=== PATIENT | female | born 1975 | race Caucasian/White ===

== ENCOUNTER 2017-05-03 12:34 | Emergency (ER) | payer BC ==
[~2017-05-03] VITALS: Ht 162.6 cm; Wt 81.5 kg
[~2017-05-03 12:34] MED LIST: LEVO75TA5 PO; PRENAT PO
[2017-05-03 12:49] VITALS: Ht 162.6 cm; Wt 81.5 kg
[2017-05-03 14:32] LABS: BASOPHIL # 0.1 10^3/ul (0.0-0.1); BASOPHILS % 0.7 % (0.0-2.0); EOSINOPHILS # 0.1 10^3/ul (0.0-0.5); HEMATOCRIT 44.6 % (37.0-47.0); HEMOGLOBIN 14.4 g/dl (12.0-16.0); LYMPHOCYTES # 2.3 10^3/ul (0.8-2.9); LYMPHOCYTES % 20.2 % (15.0-51.0); MEAN CORPUSCULAR HGB CONC 32.3 g/dl (32.0-37.0); MEAN CORPUSCULAR VOLUME 80.5 fl (82.0-101.0); MONOCYTE # 0.6 10^3/ul (0.3-0.9); MONOCYTES % 5.1 % (0.0-11.0); NEUTROPHILS % 72.6 % (39.0-77.0); PLATELET COUNT 398 10^3/UL (140-415); RED BLOOD COUNT 5.54 10^6/ul (4.20-5.40); RED CELL DISTRIBUTION WIDTH 12.9 % (11.5-14.5); WHITE BLOOD COUNT 11.6 10^3/ul (4.8-10.8)
[2017-05-03 14:42] LABS: ADD UMIC YES; UR ASCORBIC ACID 40 mg/dL (NEGATIVE); UR BACTERIA FEW /HPF (NONE SEEN); UR BILIRUBIN (Dip) NEGATIVE (NEGATIVE); UR BLOOD (Dip) 3+ mg/dL (NEGATIVE); UR CLARITY CLOUDY (CLEAR); UR COLOR YELLOW (YELLOW); UR GLUCOSE (Dip) NEGATIVE (NEGATIVE); UR KETONES (Dip) NEGATIVE (NEGATIVE); UR LEUKOCYTE ESTERASE (Dip) 3+ Leu/ul (NEGATIVE); UR NITRITE (Dip) NEGATIVE (NEGATIVE); UR RBC 89 /HPF (0-5); UR SPECIFIC GRAVITY (Dip) 1.012 (1.003-1.030); UR TOTAL PROTEIN (Dip) 1+ mg/dl (NEGATIVE); UR UROBILINOGEN (Dip) NEGATIVE (NEGATIVE); UR WBC CLUMPS FEW /HPF (NONE SEEN)
--- NOTE | 2017-05-03 14:47 | ERD ---
ER Documentation Chief Complaint Date/Time DATE: 05/03/17 TIME: 14:46 Chief Complaint Complains of painful urination HPI This a 42-year-old female who presents emergency department today complaining of pain with urination for the past week and vaginal bleeding that started today.. States that several months ago she was treated with a urinary tract infection. Patient states that she recently was on her menstrual cycle and try to go to her doctor but her doctor told her not to get her urine tested at that time because of all the blood in her urine from her menstrual cycle. Patient states that she noticed vaginal bleeding today even after her period stopped. States she does have a history of fibroids. States that she has very limited amount of pain. States she called her [facility] office and was told to "come to the ER because her fibroid may have ruptured". Denies any back pain, fevers or chills. ROS All systems reviewed and are negative except as per history of present illness. Medications Home Meds Active Scripts Naproxen* (Naprosyn*) 500 Mg Tablet, 500 MG PO BID Y for PAIN AND/OR INFLAMMATION, #30 TAB Prov:CARRI MARTINEZ PA-C 05/03/17 Cephalexin* (Keflex*) 500 Mg Capsule, 500 MG PO QID for 7 Days, CAP Prov:CARRI MARTINEZ PA-C 05/03/17 Reported Medications Levothyroxine Sodium* (Levothyroxine Sodium*) 75 Mcg Tablet, 75 MCG PO BEFORE BREAKFAST, #30 TAB 09/27/15 Multivit/Min/Fol Ac/Iron/Pren* ( S*) 1 Tab Tab, 1 TAB PO DAILY, TAB 12/13/14 Allergies Allergies: Coded Allergies: No Known Allergy (Unverified , 09/27/15) PMhx/Soc History of Surgery: No Anesthesia Reaction: No Hx Neurological Disorder: No Hx Respiratory Disorders: No Hx Cardiac Disorders: No Hx Psychiatric Problems: No Hx Miscellaneous Medical Probl: No Hx Alcohol Use: No Hx Substance Use: No Hx Tobacco Use: No Smoking Status: Never smoker Physical Exam Vitals Vital Signs Date Time Temp Pulse Resp B/P Pulse Ox O2 Delivery O2 Flow Rate FiO2 05/03/17 12:49 98.4 87 20 132/76 98 Physical Exam Const: NAD Head: Atraumatic Eyes: Normal Conjunctiva ENT: Normal External Ears, Nose and Mouth. Neck: Full range of motion..~ No meningismus. Resp: Clear to auscultation bilaterally Cardio: Regular rate and rhythm, no murmurs Abd: Soft, mild suprapubic tenderness, non distended. Normal bowel sounds. No tenderness at McBurney's. No left lower quadrant pain. Skin: No petechiae or rashes Back: No midline or flank tenderness Ext: No cyanosis, or edema Neur: Awake and alert Psych: Normal Mood and Affect Result Diagram: 05/03/17 1420 Results 24 hrs Laboratory Tests Test 05/03/17 14:20 White Blood Count 11.610^3/ul Red Blood Count 5.5410^6/ul Hemoglobin 14.4g/dl Hematocrit 44.6% Mean Corpuscular Volume 80.5fl Mean Corpuscular Hemoglobin 26.0pg Mean Corpuscular Hemoglobin Concent 32.3g/dl Red Cell Distribution Width 12.9% Platelet Count 57351^3/UL Mean Platelet Volume 9.0fl Neutrophils % 72.6% Lymphocytes % 20.2% Monocytes % 5.1% Eosinophils % 1.0% Basophils % 0.7% Nucleated Red Blood Cells % 0.0/100WBC Neutrophils # (Manual) 8.410^3/ul Lymphocytes # 2.310^3/ul Monocytes # 0.610^3/ul Eosinophils # 0.110^3/ul Basophils # 0.110^3/ul Nucleated Red Blood Cells # 0.010^3/ul Urine Color YELLOW Urine Clarity CLOUDY Urine pH 6.0 Urine Specific Steen 1.012 Urine Ketones NEGATIVEmg/dL Urine Nitrite NEGATIVEmg/dL Urine Bilirubin NEGATIVEmg/dL Urine Urobilinogen NEGATIVEmg/dL Urine Leukocyte Esterase 3+Zahida/ul Urine Microscopic RBC 89/HPF Urine Microscopic WBC > 182/HPF Urine Bacteria FEW/HPF Urine Hemoglobin 3+mg/dL Urine Glucose NEGATIVEmg/dL Urine Total Protein 1+mg/dl DIAGNOSTIC IMAGING REPORT Patient: CARMEL GALEANO : 1975 Age: 42 Sex: F MR #: [id number] DOS: 05/03/17 0000 Ordering MD: CARRI MARTINEZ PA-C Location: [facility] Room/Bed: PROCEDURE: US Pelvis. CLINICAL INDICATION: Pelvic pain, vaginal bleeding TECHNIQUE: Multiple sonographic images of the pelvis were obtained utilizing coates scale, Doppler and color flow imaging with transabdominal and endovaginal technique. The images were reviewed on a PACS workstation. COMPARISON: None. FINDINGS: The uterus is visualized and measures 9.3 x 5.4 x 6.3 cm. The endometrial echo complex measures 7.3 mm in thickness. A 3.0 cm intramural fibroid is identified in the uterine fundus. Small Nabothian cysts are seen in the cervix. The right ovary measures 3.0 x 1.5 x 1.7 cm . The left ovary measures 3.2 x 2.1 x 2.4 cm. Follicles are seen on both ovaries. The right ovary demonstrates normal vascularity. No adnexal masses or pelvic free fluid are noted. IMPRESSION: 3.0 cm intramural fibroid in the uterine fundus. Nabothian cysts in the cervix. Please note that Doppler images of left ovarian vascularity were not obtained on the current study. If there is concern for a vascular abnormality of the left ovary or for ovarian torsion, repeat exam with Doppler imaging of the left ovary is recommended. If further characterization of the organs of the pelvis is needed MRI should be considered. RPTAT: AA .Uriel Hernandez MD, MD Date Time Electronically viewed and signed by .Uriel Hernandez MD, on 05/03/2017 14:56 .P/ CC: CARRI MARTINEZ PA-C Procedures/MDM Is a 42-year-old female who presents the emergency department today complaining of dysuria for the past week and some vaginal bleeding that started today. Patient does have history of fibroids. Patient was instructed to come here to the emergency department by her [facility], Dr. Rubin.Given patient's complaints I did obtain a UA and laboratory work and pelvic ultrasound laboratory workup shows a mildly elevated white blood cell count. She is not anemic. Platelets are within normal limits. UA shows 3+ leukocyte esterase. Negative nitrites and greater than 182 microscopic white blood cells. Patient is afebrile and otherwise well-appearing. Low suspicion for pyelonephritis or nephrolithiasis. She has no CVA tenderness. test is negative Ultrasound shows a 3 cm intramural fibroid in the uterine fundus. There are nabothian cysts in the cervix. The right ovary demonstrate normal vascularity. This is not seen on the left side however patient has no other adnexal masses or free fluid. Patient has very limited pelvic pain and I do have low suspicion for ectopic , tubal ovarian abscess or ovarian torsion. Patient declined any pain medication here in the emergency department. Patient was given a prescription for Keflex and Naprosyn. She was instructed to follow back up with her [facility] in regards to her uterine fibroids. This may be causing some of her vaginal bleeding versus dysfunctional uterine bleeding. At this time the patient is stable for discharge and outpatient management. Patient should follow up with their PCP in the next 1-2 days. They may return to the emergency department sooner for any persistent or worsening of symptoms. Patient understood and agreed with the plan. Departure Diagnosis: Primary Impression: UTI (urinary tract infection) Urinary tract infection type: site unspecified Hematuria presence: with hematuria Qualified Code: N39.0 - Urinary tract infection with hematuria, site unspecified Additional Impression: Vaginal bleeding Condition: Fair CARRI MARTINEZ PA-C May 03, 2017 14:47
--- NOTE | 2017-05-03 14:56 | RADRPT ---
PROCEDURE: US Pelvis. CLINICAL INDICATION: Pelvic pain, vaginal bleeding TECHNIQUE: Multiple sonographic images of the pelvis were obtained utilizing coates scale, Doppler a nd color flow imaging with transabdominal and endovaginal technique. The images were reviewed on a PACS workstation. COMPARISON: None. FINDINGS: The uterus is visualized and measures 9.3 x 5.4 x 6.3 cm. The endometrial echo complex measures 7.3 mm in thickness. A 3.0 cm intramural fibroid is identified in the uterine fundus. Small Nabothian cy sts are seen in the cervix. The right ovary measures 3.0 x 1.5 x 1.7 cm . The left ovary measures 3.2 x 2.1 x 2.4 cm. Follicle s are seen on both ovaries. The right ovary demonstrates normal vascularity. No adnexal masses or pelvic free fluid are noted. IMPRESSION: 3.0 cm intramural fibroid in the uterine fundus. Nabothian cysts in the cervix. Please note that Doppler images of left ovarian vascularity were not obtained on the current study. If there is concern for a vascular abnormality of the left ovary or for ovarian torsion, repeat exa m with Doppler imaging of the left ovary is recommended. If further characterization of the organs of the pelvis is needed MRI should be considered. RPTAT: AA .Uriel Hernandez MD, Date Time Electronically viewed and signed by .Uriel Hernandez MD, MD on 05/03/2017 14:56 .P/
[2017-05-03] MEDS ORDERED: CEPH-443 PO (15:35)
[2017-05-03] MEDS ORDERED: NAPR-260 PO (15:36)
[2017-05-03 15:48] VITALS: BP 126/78; PULSE 72; RESP 18; TEMP 98.4
== END 2017-05-03 15:48 | disposition home or self-care (01) ==
LOC: FTE 12:34
DX: N39.0 Urinary tract infection, site not specified (principal); N93.9 Abnormal uterine and vaginal bleeding, unspecified; R10.2 Pelvic and perineal pain
CPT/HCPCS: 36415; 76830; 76856; 81001; 85025; Z7502